=== PATIENT | female | born 1975 | race Caucasian/White ===

== ENCOUNTER 2017-11-25 12:57 | Day surgery (SDC) | END 2017-11-26 19:25 | disposition home or self-care (01) ==

== ENCOUNTER 2019-01-22 06:20 | Day surgery (SDC) | payer OTHER ==
[~2019-01-22] VITALS: Ht 160 cm; Wt 81.4 kg
[~2019-01-22 06:20] MED LIST: LISI10TA2 PO; OXYC-438 PO
[2019-01-22 07:27] VITALS: Ht 160 cm; Wt 81.4 kg
[2019-01-22] MEDS ORDERED: NAPROXEN (07:37)
[2019-01-22 07:45] VITALS: BP 147/69; PULSE 66; RESP 15
[2019-01-22] MEDS ORDERED: MIDAZOLAM 1 MG/ML 2 ML INJ ONE ×2 (09:05)
[2019-01-22] MEDS ORDERED: FENTAnyl 50 MCG/ML VIAL ONE (09:05)
[2019-01-22 09:12] VITALS: BP 130/59; PULSE 60; RESP 18
--- NOTE | 2019-01-23 19:23 | CONS ---
DATE OF ADMISSION: 01/22/2019 DATE OF CONSULTATION: PATIENT NAME: ELISA LEON TYPE OF CONSULTATION: Preoperative gastroenterology. Dear Dr. Bernstein: I thank you very much for this kind referral. HISTORY OF PRESENT ILLNESS: Ms. Elisa Cleveland is a 43-year-old female patient who has be en referred to me for further evaluation of change in the bowel habit associated with rectal bleeding . The patient also complains of weight loss. No past history of colon neoplasm. The patient never had screening colonoscopy. Appetite is somewhat poor. No upper abdominal pain. Not on nonsteroidal anti-inflammatory agents. No history of gallstones or liver disease. Not a hypertensive or diabeti c. No heart disease, lung problem or kidney disease. PAST SURGICAL HISTORY: Status post surgery for parathyroid adenoma. SOCIAL HISTORY: Nonsmoker. No alcohol abuse. FAMILY HISTORY: No family history of gastrointestinal tract neoplasm. ALLERGIES: NO DRUG ALLERGIES. MEDICATIONS: Colace. PHYSICAL EXAMINATION: VITAL SIGNS: She is 5 feet, 3 inches tall and weighs 180 pounds. HEART: Normal heart sounds. LUNGS: Clear. ABDOMEN: Soft. No masses. Normal bowel sounds. NEUROLOGIC: Normal. IMPRESSION: 1. Change in the bowel habit. 2. Rectal bleeding. 3. Weight loss. 4. The patient never had screening colonoscopy. 5. Status post surgery for parathyroid adenoma. PLAN: Screening colonoscopy. The procedure and possible complications are well explained to the patient. She understands and cons ents to the procedure. I thank you once again. With warmest personal regards, Dictated By: MORGAN CRAMER/KADE Conf#: [id number] DID#: [id number]
== END 2019-01-22 12:58 | disposition home or self-care (01) ==
LOC: GIL 06:20
PROVIDERS: ATTEND Internal Medicine Gastroenterology
DX: Z12.11 Encounter for screening for malignant neoplasm of colon (principal); K64.8 Other hemorrhoids
CPT/HCPCS: 45378; 84703; J2250; J3010